=== PATIENT | male | born 1980 | race Two or more races ===

== ENCOUNTER 2019-09-21 19:59 | Emergency (ER) | payer MEDICAID ==
[~2019-09-21] VITALS: Ht 175.3 cm; Wt 68.0 kg
[2019-09-21] MEDS ORDERED: LISINOPRIL10 MG ORAL (20:06)
[2019-09-21] MEDS ORDERED: ATORVASTATIN CA40 MG ORAL (20:06)
--- NOTE | 2019-09-21 20:10 | NUR ---
ED Nurse Note: Patient brought in by ambulance from home d/t high blood pressure 219/142 per EMS and unable to get up on his own. Patient aao x 1 to self and nonambulatory needs assist. Per brother, patient is noncompliant with his hypertension medications and this is the first time he had these symtpoms. Patient placed on pvc monitor and gown. Left upper arm 20g IV inserted, blood drawn and sent to lab, IV intact and patent. Stroke scale initiated per ERMD. NS 500ml bolus started and patient sent to CT scan. All IV meds administered, pt unable to follow swallow instructions, decadron PO was not administered, OK per ERMD.
--- NOTE | 2019-09-21 20:13 | Emergency Room Report ---
History of Present Illness General Chief Complaint: Hypertension Source: Patient, EMS Present Illness HPI 39-year-old male history of hypertension, uncontrolled recent hospitalization for hypertensive encephalopathy presents with last known well time at 7:40 PM, patient with difficulty speaking, right hemibody numbness patient reports no aggravating relieving factors severity is severe, constant, patient also reports some chest pain some shortness of breath, patient presents for evaluation Allergies: Coded Allergies: No Known Allergies (Unverified , 09/21/19) Patient History Limited by: medical condition - Weak having trouble speaking Past Medical History: see triage record Reviewed Nursing Documentation: PMH: Agreed; PSxH: Agreed Nursing Documentation-PMH Hx Cardiac Problems: Yes - AHF Hx Hypertension: Yes Review of Systems All Other Systems: limited Physical Exam Vital Signs Date Time Temp Pulse Resp B/P (MAP) Pulse Ox O2 Delivery O2 Flow Rate FiO2 09/21/19 20:01 97.9 68 22 222/134 (163) 99 Room Air Sp02 EP Interpretation: reviewed, normal General Appearance: alert, moderate distress Head: normocephalic, atraumatic Eyes: bilateral eye PERRL, bilateral eye EOMI ENT: uvula midline, moist mucus membranes Neck: supple, thyroid normal, supple/symm/no masses Respiratory: lungs clear, no respiratory distress, no retraction, no accessory muscle use Cardiovascular #1: normal peripheral pulses, regular rate, rhythm, no edema, no gallop, no murmur Gastrointestinal: non tender, soft, no guarding, no rebound Musculoskeletal: normal inspection Neurologic: alert, oriented x3, other - Patient with numbness on the left side , thread cutter strength with poor effort, cranial nerves II through XII are intact, however patient does gaze to the right however he can break the gaze and look to the left, patient is able to raise both arms and lower extremities against gravity however effort is poor, NIHSS 9 Psychiatric: mood/affect normal Skin: no rash, warm/dry Procedures Critical Care Time Critical Care Time Given the critical condition in which the patient arrived, the patient was immediately assessed by myself and the nurse, and cardiac monitoring initiated due to the potential for rapid decompensation of the patient's clinical condition. During the course of the patient's stay, I spent a considerable amount of time at the bedside performing serial re-evaluations of the patient's hemodynamic and clinical status because of the recognized potential threat to life or limb in this condition. I then had a chance to review not only all of the available current laboratory and radiographic studies obtained today, but I also reviewed old records available to me at the time. Additionally, any ancillary information available including pharmacy messenger records were reviewed. Sequential vital signs were obtained. Critical Care time of 37 minutes was performed exclusive of billable procedures. Medical Decision Making Diagnostic Impression: Primary Impression: Intracranial bleed Additional Impression: Hypertensive emergency ER Course 39-year-old male presents with altered mental status, right-sided numbness, concerning for stroke versus intracranial hemorrhage versus drug Patient emergently evaluated at bedside Stroke alert was called Stroke team called 8:16pm spoke with Dr. Salcido recommends head ct Spoke with Dr. Salcido at 8:44 PM she recommends starting nicardipine drip Will control blood pressure Evaluation 9:14 PM, blood pressure is now 150 systolic at goal with nicardipine Patient is currently protecting his airway Laboratory Tests Test 09/21/19 20:20 09/21/19 21:00 White Blood Count 10.4 K/UL (4.8-10.8) Red Blood Count 5.59 M/UL (4.70-6.10) Hemoglobin 10.1 G/DL (14.2-18.0) L Hematocrit 34.1 % (42.0-52.0) L Mean Corpuscular Volume 61 FL (80-99) L Mean Corpuscular Hemoglobin 18.1 PG (27.0-31.0) L Mean Corpuscular Hemoglobin Concent 29.6 G/DL (32.0-36.0) L Red Cell Distribution Width 13.3 % (11.6-14.8) Platelet Count 372 K/UL (150-450) Mean Platelet Volume 8.8 FL (6.5-10.1) Neutrophils (%) (Auto) 56.1 % (45.0-75.0) Lymphocytes (%) (Auto) 32.1 % (20.0-45.0) Monocytes (%) (Auto) 8.6 % (1.0-10.0) Eosinophils (%) (Auto) 2.0 % (0.0-3.0) Basophils (%) (Auto) 1.2 % (0.0-2.0) Prothrombin Time 10.0 SEC (9.30-11.50) Prothrombin Time INR 0.9 (0.9-1.1) PTT 23 SEC (23-33) Sodium Level 136 MMOL/L (136-145) Potassium Level 3.0 MMOL/L (3.5-5.1) L Chloride Level 100 MMOL/L (98-107) Carbon Dioxide Level 27 MMOL/L (21-32) Anion Gap 9 mmol/L (5-15) Blood Urea Nitrogen 17 mg/dL (7-18) Creatinine 1.3 MG/DL (0.55-1.30) Estimate Glomerular Filtration Rate > 60 mL/min (>60) Glucose Level 115 MG/DL (74-106) H Calcium Level 10.3 MG/DL (8.5-10.1) H Total Bilirubin 0.3 MG/DL (0.2-1.0) Aspartate Amino Transferase (AST) 26 U/L (15-37) Alanine Aminotransferase (ALT) 26 U/L (12-78) Alkaline Phosphatase 92 U/L (46-116) Troponin I 0.012 ng/mL (0.000-0.056) Pro-B-Type Natriuretic Peptide 892 pg/mL (0-125) H Total Protein 7.6 G/DL (6.4-8.2) Albumin 4.3 G/DL (3.4-5.0) Globulin 3.3 g/dL Albumin/Globulin Ratio 1.3 (1.0-2.7) Serum Alcohol < 3 mg/dL Urine Opiates Screen Pending Urine Barbiturates Screen Pending Phencyclidine (PCP) Screen Pending Urine Amphetamines Screen Pending Urine Benzodiazepines Screen Pending Urine Cocaine Screen Pending Urine Marijuana (THC) Screen Pending EKG Diagnostic Results EKG Time: 20:07 EP Interpretation: NSR, rate 73, QTc 480, no acute ST elevations, left axis deviation Rate: normal Rhythm Strip Diag. Results Rhythm Strip Time: 20:48 EP Interpretation: yes Rate: 67 Rhythm: NSR, no PVC's, no ectopy Chest X-Ray Diagnostic Results Chest X-Ray Diagnostic Results : Chest X-Ray Ordered: Yes # of Views/Limited/Complete: 1 View Indication: Other - Weaknessweakness EP Interpretation: Yes Interpretation: no consolidation, no effusion, no pneumothorax, no acute cardiopulmonary disease Impression: No acute disease Electronically Signed by: Julio Hernandez MD CT/MRI/US Diagnostic Results CT/MRI/US Diagnostic Results : Impression Preliminary Findings Only See Final Report For Complete Findings CT HEAD Without Contrast: Findings: 1 cm low-attenuation area superior to the right frontal horn. 1.1 x 1.1 x 1 cm hemorrhage in the posterior aspect of the left inferior posterior jaxon near the left cerebellar peduncle. Negative for any intraventricular breakthrough. Paranasal sinuses, mastoid air cells are normal. Impression: 1. 1 cm hematoma in the left posterior inferior jaxon near the left cerebellar peduncle. 2. Old lacunar infarct superior to the right frontal horn. Radiologist: Francisca Wilkerson MD Study ready at 20:32 and initial results transmitted at 20:39 Communications: Clear Time Type Notes Call Doctor Intracranial Hemorrhage Last Vital Signs Date Time Temp Pulse Resp B/P (MAP) Pulse Ox O2 Delivery O2 Flow Rate FiO2 09/21/19 20:10 70 222/134 09/21/19 20:01 97.9 22 99 Room Air [facility] Condition: Serious Julio Hernandez MD Sep 21, 2019 20:13
[2019-09-21] MEDS ORDERED: DiphenhydrAMINE 50mg/ml Inj IVP ONE (20:15)
[2019-09-21] MEDS ORDERED: Labetalol 5mg/ml 20ml vial IV ONE (20:15)
--- NOTE | 2019-09-21 20:22 | NUR ---
Note randy in EDM - 09/21/19 at 2025 by [email or web address] ER Nurse Note: NIHSS scale of 16. aware. Stroke team called; pt in CT.
[2019-09-21 20:40] VITALS: BP 222/134
--- NOTE | 2019-09-21 20:40 | Diagnostic Imaging Report ---
Indication: Altered mental status Technique: Contiguous 5 mm thick transaxial imaging of the head obtained in a Siemens Sensation [address] scanner. Soft tissue and bone windows generated. Automatic Exposure Control was utilized. Total Dose length Product (DLP): 1300.[address] Dose Index Volume (CTDIvol): 62.7 mGy Comparison: none Findings: There is a 1.3 x 1.2 x 0.9 cm hyperdensity in the left aspect of the jaxon consistent with an acute intra-axial hematoma. There is little to no edema associated with this. The fourth ventricle which resides just posterior to the hematoma appears normal without mass effect. The hematoma is at the anterior aspect of the left brachium pontis. Small cystic focus noted adjacent to the anterior horn of the right lateral ventricle measuring 8 mm probably representing an old lacunar infarct. The ventricles appear symmetric and normal in caliber. The basal cisterns are intact. Osseous structures are unremarkable. IMPRESSION: Acute 1.3 cm hematoma in the left aspect of the jaxon. Old lacunar infarct right periventricular white matter. Critical value communication. Findings were discussed via telephone with Dr. Hernandez on 09/21/2019 at 20:44 by the stat read physician Dr. Wilkerson. The CT scanner at [facility] is accredited by the [employer] and the scans are performed using dose optimization techniques as appropriate to a performed exam including Automatic Exposure control.
--- NOTE | 2019-09-21 20:43 | NUR ---
ED Nurse Note: Did not administer Decadron, OK per ERMD d/t patient unable to follow instructions to swallow PO medication. Medication returned to Pyxis.
[2019-09-21 20:58] LABS: BASOPHILS % (AUTO) 1.2 % (0.0-2.0); HEMATOCRIT 34.1 % (42.0-52.0); HEMOGLOBIN 10.1 G/DL (14.2-18.0); LYMPHOCYTES % (AUTO) 32.1 % (20.0-45.0); MEAN CORPUSCULAR VOLUME 61 FL (80-99); MONOCYTES % (AUTO) 8.6 % (1.0-10.0); NEUTROPHILS % (AUTO) 56.1 % (45.0-75.0); PLATELET COUNT 372 K/UL (150-450); RED BLOOD COUNT 5.59 M/UL (4.70-6.10); RED CELL DISTRIBUTION WIDTH 13.3 % (11.6-14.8); WHITE BLOOD COUNT 10.4 K/UL (4.8-10.8)
[2019-09-21] MEDS: niCARdipine HCl 200 ML IV SCH ×2 (20:59→23:22)
[2019-09-21 21:03] LABS: INR 0.9 (0.9-1.1)
[2019-09-21 21:04] LABS: ANION GAP 9 mmol/L (5-15); BLOOD UREA NITROGEN 17 mg/dL (7-18); CALCIUM 10.3 MG/DL (8.5-10.1); CARBON DIOXIDE 27 MMOL/L (21-32); CHLORIDE 100 MMOL/L (98-107); CREATININE 1.3 MG/DL (0.55-1.30); SODIUM 136 MMOL/L (136-145)
--- NOTE | 2019-09-21 21:14 | NUR ---
ER Nurse Note: Nircardipine ordered for pt; started 2058 with BP 201/130. Per MD orders; drip titrated up 5mg/hr as of BP 189/107. 16 fr bingham cath interted; urine collected and sent to lab. All orders completed per ERMD orders. Pt resting, calm. All safety measrues met; will continue to montior.
[2019-09-21 21:15] LABS: ALANINE AMINOTRANSFERASE 26 U/L (12-78); ALBUMIN 4.3 G/DL (3.4-5.0); ALBUMIN/GLOBULIN RATIO 1.3 (1.0-2.7); ALKALINE PHOSPHATASE 92 U/L (46-116); ASPARTATE AMINO TRANSFERASE 26 U/L (15-37); BILIRUBIN,TOTAL 0.3 MG/DL (0.2-1.0)
[2019-09-21 21:27] VITALS: BP 148/89
--- NOTE | 2019-09-21 21:54 | NUR ---
ER Nurse Note: VSS at this time; BP 148/82, HR 82. Pupils reactive to light. Nicardpine drip rate at 8mg/hr on LT AC. SLIV RT hand; patent. Pt stated "it is difficult to speak and move my hand". Pt resting in bed. NIHSS done. Awaiting further orders; will continue to montior.
--- NOTE | 2019-09-21 22:11 | NUR ---
ER Nurse Note: Report given to LANA Haynes at [facility] for continutiy of care. All clinical information given and no further questions. Will call back to LANA Haynes with an ETA at . Emegency contact is brother Kinney; cell phone . Per ERMD orders, Cardene drip at 8ml/hr is acceptable with BP 129/83. Pt resting. Brother at bedside. [facility]waiting further orders; [facility]
[2019-09-21 22:18] VITALS: BP 129/83
--- NOTE | 2019-09-21 22:31 | NUR ---
ER Nurse Note: BP increasing; 144/90. Cardene drip increased to 10 mg/hr. Will reassess.
[2019-09-21 23:09] VITALS: BP 134/85
[2019-09-21 23:37] VITALS: BP 138/80
--- NOTE | 2019-09-21 23:37 | NUR ---
ER Nurse Note: Per ERMD; second bag of Nicardipine ordered and hung; rate at 15 ml/hr. Family updated on pt transfer. Spoke with Garrett, nephew at . LANA Haynes called for ETA. Pt calm, BP controlled, 136/80. Garrett took all belongings.
--- NOTE | 2019-09-22 15:27 | Diagnostic Imaging Report ---
Indication: Dyspnea Comparison: None A single view chest radiograph was obtained. Findings: No definite infiltrate or pulmonary vascular congestion identified. The heart is enlarged. The bones are unremarkable. Impression: No acute disease
== END 2019-09-21 23:37 | disposition short-term general hospital (02) ==
LOC: EDBD 19:59 → EMR 21:02
DX: I61.4 Nontraumatic intracerebral hemorrhage in cerebellum (principal); I16.1 Hypertensive emergency; I10 Essential (primary) hypertension; I50.9 Heart failure, unspecified
CPT/HCPCS: 36415; 70450; 71045; 80053; 80307; 82962; 83880; 84484; 85025; 85610; 85730; 93005; 96365; 96366; 96375; G0480; J0360; J0780; J1200; J7040; Z7502; 99291